=== PATIENT | female | born 1995 | race Caucasian/White ===

== ENCOUNTER 2018-11-30 04:00 | Outpatient (CLI) | payer OTHER ==
[~2018-11-30] VITALS: Ht 172.7 cm; Wt 117.5 kg
[~2018-11-30 04:00] MED LIST: PREN-93 PO
[2018-11-30 04:46] VITALS: Ht 172.7 cm; Wt 117.5 kg
[2018-11-30 04:47] VITALS: BP 122/73; PULSE 71; RESP 18
[2018-11-30] MEDS ORDERED: ONDANSETRON 4 MG INJ IV STA (05:03)
[2018-11-30] MEDS ORDERED: LACTATED RINGER'S 1,000 ML IV ONE (05:30)
[2018-11-30] MEDS ORDERED: ACETAMINOPHEN 1000MG/100ML IV 100 ML IVPB ONE (05:30)
[2018-11-30] MEDS ORDERED: LACTATED RINGER'S 1,000 ML IV SCH (05:30)
== END 2018-11-30 07:43 | disposition home or self-care (01) ==
LOC: OBT 04:00 → L-D 04:00 → OBT 07:43
PROVIDERS: ATTEND Obstetrics & Gynecology Obstetrics
DX: O36.8120 Decreased fetal movements, second trimester, not applicable or unspecified (principal); Z3A.26 26 weeks gestation of pregnancy
CPT/HCPCS: 36415; 76815; 76817; 76818; 80053; 81001; 82962; 83036; 85025; 86592; 86703; 86762; 86850; 86900; 86901; 87340; 96360; 96361; J0131; J2405; J7120; Z7500; 81003; G0463